=== PATIENT | female | born 1950 ===

== ENCOUNTER 2018-10-08 06:11 | Day surgery (SDC) | payer MEDICARE, MEDICAID ==
[2018-09-30 07:57] VITALS: BMI 44.2
--- NOTE | 2018-10-07 20:32 | HP ---
DATE OF EXAM: 10/07/2018 REASON FOR ADMISSION: Left heart cath, possible angioplasty. BRIEF CLINICAL HISTORY: This is a 68-year-old morbidly obese female with past medical history significant for hypertension, hyperlipidemia, hypothyroidism, and arthritis who was referred initially by Dr. Perfecto Chiu for cardiac evaluation, was complaining of a dyspnea on exertion and chest pain as well on walking and profuse sweating and passive angina. So patient underwent noninvasive workup, which was abnormal, so patient is placed for elective cardiac cath with possible angioplasty. PAST MEDICAL HISTORY: Significant for hyperlipidemia, hypertension, SEASONAL ALLERGY, arthritis, and morbid obesity. RECENT CARDIAC WORKUP: As follows; the patient underwent echocardiography dated 09/15/2018 that showed ejection fraction 59%, [id number] mitral regurgitation, mild tricuspid regurgitation, RV systolic pressure 37. Patient underwent a stress Thallium. There was a Lexiscan that shows probably abnormal myocardial perfusion study, anteroseptal reversible ischemia, ejection fraction 55%. New changes since 12/12/2015, these changes are new. ALLERGIES: NO KNOWN DRUG ALLERGY. CURRENT MEDICATIONS: Patient is taking Valsartan one tablet with combination of 160 mg Valsartan and 12.5 mg of hydrochlorothiazide, vitamin D2, Cymbalta 20 mg daily, Singulair, Robaxin, folic acid, amlodipine, Pravachol 10 mg, and aspirin. SOCIAL HISTORY: She denies any smoking, denies any history of alcohol abuse. REVIEW OF SYSTEMS: As per HPI. PHYSICAL EXAMINATION GENERAL: Height of the patient 5 feet 2 inches. Weight of the patient 242 pounds. Body mass index 44.3 kg/m2. VITAL SIGNS: Temperature afebrile. Heart rate 60, blood pressure 120/70. HEENT: PERRLA. Extraocular muscles intact. NECK: Supple. No carotid bruits or thyromegaly. CHEST; Clear to auscultation. HEART: S1 and S2 regular. ABDOMEN: Soft. EXTREMITIES: Clubbing and cyanosis negative. IMPRESSION: A 68-year-old morbidly obese female with past medical history significant for hypertension, hyperlipidemia, arthritis, hypothyroidism, developed dyspnea on exertion and chest pain on exertion angina with profuse sweating. Underwent noninvasive workup that shows essentially abnormal myocardial perfusion study, anteroseptal reversible ischemia. This finding is new when compared from previous stress test dated 12/12/2015. Recent stress test is dated 09/15/2018. Patient's echocardiogram also shows [id number] mitral regurgitation, mild tricuspid regurgitation. Ejection fraction reported 59%. Right ventricular systolic pressure 37. So patient has a new onset of angina called unstable angina. The patient is to have selective cardiac catheterization with possible angioplasty. We will load with aspirin and Plavix. Further recommendation after the cardiac catheterization. Risks, benefits, and alternatives explained to the patient, patient agreed. We will proceed for cardiac catheterization. Marine Warren MD
[2018-10-08 06:57] LABS: BASO # 0.01 K/mm3 (0.0-2.0); BASO % 0.1 % (0.0-3.0); EOS # 0.2 (0.0-0.7); HEMOGLOBIN 12.9 g/dL (12.0-16.0); LYMPH # 2.9 (1.2-3.4); LYMPH % 34.6 % (22.0-35.0); MEAN CELL VOLUME 86.9 fl (80.0-105.0); MEAN CORPUSCULAR HEMOGLOBIN 27.2 pg (25.0-35.0); MEAN CORPUSCULAR HGB CONC 31.3 g/dl (31.0-37.0); MEAN PLATELET VOLUME 9.4 fl (7.0-11.0); MONO # 0.6 (0.1-0.6); MONO % 7.3 % (1.0-6.0); RBC 4.74 10^6/uL (3.5-6.1); RED CELL DISTRIBUTION WIDTH 14.8 % (11.5-14.5); WHITE BLOOD COUNT 8.4 10^3/uL (4.5-11.0)
[2018-10-08 07:01] LABS: INR 0.96; PARTIAL THROMBOPLASTIN TIME 34.3 Seconds (26.9-38.3); PROTHROMBIN TIME 10.8 SECONDS (9.4-12.5)
[2018-10-08 07:10] LABS: BLOOD UREA NITROGEN 22 mg/dL (7-21); CALCIUM 9.4 mg/dL (8.4-10.5); GFR NON-AFRICAN AMERICAN > 60; HDL CHOLESTEROL 45 mg/dL (29-60)
[2018-10-08 07:21] LABS: LDL CHOLESTEROL 125 mg/dL (0-129)
[2018-10-08 07:59] VITALS: O2SAT 94
[2018-10-08] MEDS ORDERED: Verapamil 2 ML ONE (09:54)
[2018-10-08] MEDS ORDERED: Lidocaine 2% Inj (20ml) ONE (09:54)
[2018-10-08] MEDS ORDERED: Nitroglycerin 50mg in D5W 50 MG/250 ML BOTTLE IV ONE (09:55)
[2018-10-08] MEDS ORDERED: Iodixanol 320 MG/ML 200 ML BOTTLE IV ONE (09:55)
[2018-10-08] MEDS ORDERED: Iohexol 350mgl/ml 50 ML ONE (09:55)
[2018-10-08] MEDS ORDERED: Iodixanol 320 MG/ML 100 ML BOTTLE IV ONE (09:55)
[2018-10-08] MEDS ORDERED: Midazolam 2 MG/2 ML VIAL ONE (09:56)
[2018-10-08] MEDS ORDERED: Bacitracin 500 Units/gm Oint Foilpak UD TOP ONE (10:32)
[2018-10-08] MEDS ORDERED: Sodium Chloride 0.9% 1,000 ML IV SCH (10:45)
[2018-10-08 10:49] VITALS: TEMP 97.9
--- NOTE | 2018-10-08 11:41 | CPOSTOP ---
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 TYPE OF ANESTHESIA: Moderate conscious sedation, total 2 mg of Versed and 100 mcg of fentanyl given periodically. Started 1 mg of Versed and 50 of fentanyl. PRE-PROCEDURE DIAGNOSIS: Unstable angina. PROCEDURE PERFORMED: Left heart catheterization. FINDINGS: Normal coronaries, preserved LV function and morbid obesity. FINAL DIAGNOSIS: Normal coronaries. POST PROCEDURE CONDITION: The patient's condition is stable. VASCULAR ACCESS SITE: Left radial. CLOSURE DEVICE: TR-band. RADIATION DOSE: 5534.69 milligray unit. TOTAL FLUORO TIME: 1.2 minutes. Marine Warren MD
[2018-10-08 12:25] VITALS: RESP 18
[2018-10-08] MEDS ORDERED: Bacitracin 500 Units/gm Oint Foilpak UD ONE (13:32)
[2018-10-08 13:46] VITALS: BP 138/76; PULSE 78
--- NOTE | 2018-10-08 14:55 | CARD ---
APPROVED REPORT Date of service: 10/08/2018 Procedure(s) performed: Left Heart Catheterization HISTORY The patient is a 68 year-old female with a history of : hypertension , dyslipidemia , Hx of morbid obesity who was complaing of chest pain, SOB and diaphoresis on walking and betty-septal Ischemia on stress test dt.09/15/2018, new changes since previous stress test dt.12/12/2015.. INDICATION The indication(s) include : positive stress test. CASE TECHNIQUE The patient was brought electively to the Cardiac Catheterization Laboratory in a fasting state and was prepped and draped in a sterile manner. The left wrist was infiltrated with 2% Lidocaine subcutaneous anesthesia. A 6 Fr Glidesheath (Radial Sheath Only) sheath was inserted into the left radial artery without difficulty. Coronary angiography was performed using coronary diagnostic catheters. The left coronary system was accessed and visualized with a Diagnostic,5 Fr JR 4 catheter. The right coronary system was accessed and visualized with a Diagnostic ,5 Fr JL 4 catheter. The left ventricle was accessed and visualized with a Diagnostic ,5 Fr JR 4 catheter. Left ventriculogram was performed in JONES projection. Closure device was deployed with a Fr TR Band (Large) without any complications. The patient tolerated the procedure well and there were no complications associated with the procedure. Vessel Analysis The patient's coronary anatomy is co-dominant. The left main coronary artery is a large size vessel without significant stenosis. The left main trifurcates to the left anterior descending, circumflex, and ramus. The left anterior descending artery is a medium size vessel without significant stenosis. The first diagonal branch is a medium size vessel with intimal irregularities. The circumflex artery is a large size vessel without significant stenosis. The first obtuse marginal branch is a small size vessel without significant stenosis. The second obtuse marginal branch is a large size vessel with intimal irregularities and without significant stenosis. The left posterior descending artery is a medium size vessel with intimal irregularities and without significant stenosis. The ramus intermedius artery is a small size vessel with intimal irregularities and without significant stenosis. The right coronary artery is a large size vessel with intimal irregularities. The right posterior descending artery is a medium size vessel with intimal irregularities. The right posterolateral branch is a medium size vessel with intimal irregularities and without significant stenosis. Left Ventricle The left ventricle is normal in size with normal contractility. There was no cardiomyopathy. The left ventricular ejection fraction is estimated to be 55-60%. The left ventricular end diastolic pressure is 6-12 mmHg. with respiratory variation. There was no gradient across the aortic valve upon pullback. Conclusion Normal coronaries, preserved Lv Fx. EF-55-60%, EDP-6-16 with respiratory variation. Recommendations Aggressive Medical TherapyCardiac Risk Reduction Program Weight Loss Reduction Program May consider bariatric Surgery for wt. reduction. CC; Nick Green MD.
--- NOTE | 2018-10-08 21:43 | CARD ---
APPROVED REPORT Date of service: 10/08/2018 EKG Measurement Heart [id number] 144P-10 [id number] <Conclusion> Normal sinus rhythm Normal ECG
== END 2018-10-08 14:50 | disposition home or self-care (01) ==
LOC: CATH 06:11
PROVIDERS: ATTEND Internal Medicine Cardiovascular Disease
DX: I20.0 Unstable angina (principal); E78.5 Hyperlipidemia, unspecified; E66.01 Morbid (severe) obesity due to excess calories; I10 Essential (primary) hypertension; E03.9 Hypothyroidism, unspecified; I08.1 Rheumatic disorders of both mitral and tricuspid valves; M19.90 Unspecified osteoarthritis, unspecified site; Z79.82 Long term (current) use of aspirin; Z79.899 Other long term (current) drug therapy; Z68.41 Body mass index [BMI] 40.0-44.9, adult
CPT/HCPCS: 36415; 80048; 80061; 85025; 85610; 85730; 86850; 86900; 93005; 93458; 99152; C1769; C1887 ×2; J1644 ×2; J2250; J3010; J7030; J7040; Q9966